=== PATIENT | female | born 1960 | race Caucasian/White ===

== ENCOUNTER 2017-10-19 10:26 | Emergency (ER) | payer OTHER ==
[2017-10-19 10:50] VITALS: BP 116/82
--- NOTE | 2017-10-19 12:43 | RAD ---
Indication: Left lower leg pain. 2 views of left lower leg demonstrates no fracture. No other bone or joint abnormality is identified. IMPRESSION: No definite fracture of the left lower leg is noted.
--- NOTE | 2017-10-19 13:16 | UC ---
Eric Avendano Jason, scribed for Angel Hills MD on 10/19/17 at 1226 . Lower Extremity/Ankle HPI - HPI Summary HPI Summary: This patient is a 57 year old F presenting to [facility] with a chief complaint of stabbing and throbbing lower left leg pain since 2.5 weeks ago. The patient states the leg pain got to the point where I cant run. It has interrupted my sleep for the last 3 days. Prior to the injury I was running 3 days a week because I got a hip injury in July. My hip got better, I received had a cortisone injection, and I began running 20 miles a week. Additionally, the patient states she couldnt even stand this morning and is taking ibuprofen for pain. The patient rates the pain 5/10 in severity. Symptoms aggravated by nothing. Symptoms alleviated by nothing. Patient reports having a foot drop. Patient denies weakness, numbness, and butt pain. Has hx of stress fracture. - History of Current Complaint Chief Complaint: UCLowerExtremity Stated Complaint: LEG PAIN Time Seen by Provider: 10/19/17 12:02 Hx Obtained From: Patient Onset/Duration: Lasting Weeks - Since 2.5 weeks ago, Still Present Pain Intensity: 5 Pain Scale Used: 0-10 Numeric Aggravating Factor(s): Nothing Alleviating Factor(s): Nothing - Allergies/Home Medications Allergies/Adverse Reactions: Allergies Allergy/AdvReac Type Severity Reaction Status Date / Time codeine Allergy Nausea Verified 10/19/17 10:50 Penicillins Allergy Hives Verified 10/19/17 10:50 Home Medications: Home Medications Ibuprofen 400 mg PO 10/19/17 [History] PMH/Surg Hx/FS Hx/Imm Hx - Surgical History Surgical History: None Surgery Procedure, Year, and Place: AGE 12 MOUTH SURGERY-NO METAL. AGE 38 BUNIONECTOMY. RIGHT BREAST BIOPSY - Family History Known Family History: Positive: Other - Breast CA - Social History Alcohol Use: Weekly Alcohol Amount: 2-3 beers 1-3x a week Substance Use Type: None Smoking Status (MU): Never Smoked Tobacco Review of Systems Constitutional: Other - negative fever Musculoskeletal: Other: - experienced a "foot drop" while running. Lower left leg pain. All Other Systems Reviewed And Are Negative: Yes Physical Exam - Summary Physical Exam Summary: General: well-appearing, no pain distress Skin: warm, color reflects adequate perfusion, dry Head: normal Eyes: EOMI, MELISSA ENT: normal Neck: supple, nontender Respiratory: CTA, breath sounds present Cardiovascular: RRR Abdomen: soft, nontender Bowel: present Musculoskeletal: No low back pain. No tenderness of sciatic nerve distribution. The knee is normal. Ankle is normal. Plantar flexion is normal. Left foot Dorsiflexion is mildly decreased when compared to the right foot. Neurological: normal, sensory/motor intact, A&O x3 Psychological: affect/mood appropriate Triage Information Reviewed: Yes Vital Signs: Initial Vital Signs Temp 98.4 F 10/19/17 10:42 Pulse 65 10/19/17 10:42 Resp 18 10/19/17 10:42 BP 116/82 10/19/17 10:42 Pulse Ox 100 10/19/17 10:42 Diagnostics - Radiology lower extremity xray Radiology Interpretation Completed By: Radiologist - Lower extremity x-ray reveals, per radiologist, no definite fracture of the left lower leg. physician has reviewed this radiology report. Lower Extremity Course/Dx - Course Course Of Treatment: Lower extremity x-ray reveals, per radiologist, No definite fracture of the left lower leg is noted. THERE IS MILD DECREASED STRENGTH OF LEFT FOOT DORSIFLEXION ON EXAM. PATIENT REPORTS IT WAS WORSE 2 WEEKS AGO WHERE SHE HAD DIFFICULTY WITH DORSIFLEXION. THERE IS NO LOW BACK OR HIP/SCIATIC PAIN/TENDERNESS. THE PAIN IN THE LOWER LEG MOST PROBABLY REPRESENT PERONEAL NERVE IMPINGEMENT FROM SOFT TISSUE INFLAMMATION. DISCUSSED X-RAY RESULTS AND FOOT DROP. TREAT WITH REST/ICE NSAIDS AND CLOSE F/U WITH SPORTS MEDICINE. - Differential Dx/Diagnosis Provider Diagnoses: LEFT LOWER LEG PAIN. LEFT FOOT DROP. Elevated blood pressure without a diagnosis of hypertension Discharge - Discharge Plan Condition: Stable Disposition: HOME Patient Education Materials: Foot Drop (ED) Referrals: Jalil Kaplan [Medical Doctor] - Joselyn Mtoa MD [Primary Care Provider] - Additional Instructions: FOLLOW UP WITH YOUR SPORTS MEDICINE DOCTOR. CALL TOMORROW TO ARRANGE FOLLOW UP. GET RECHECKED FOR ANY WORSENING OF YOUR CONDITION OR QUESTIONS OR CONCERNS. YOUR BLOOD PRESSURE WAS ELEVATED DURING TODAY'S VISIT; FOLLOW UP WITH YOUR PCP WITHIN ONE WEEK FOR FURTHER EVALUATION. The documentation as recorded by the Eric melchor Jason accurately reflects the service I personally performed and the decisions made by me, Angel Hills MD.
== END 2017-10-19 13:00 | disposition home or self-care (01) ==
LOC: UCEAST 10:26
DX: M79.662 Pain in left lower leg (principal); M21.372 Foot drop, left foot; R03.0 Elevated blood-pressure reading, without diagnosis of hypertension; Z88.5 Allergy status to narcotic agent; Z88.0 Allergy status to penicillin
CPT/HCPCS: 99211; G0463

== ENCOUNTER 2018-04-16 04:00 | Emergency (ER) | payer OTHER ==
[2018-04-16] MEDS ORDERED: Morphine VIAL* 10 MG/ML 1 ML VIAL ONE (05:06)
--- OUTSIDE RECORDS SUMMARY | 2018-04-16 05:47 | XMS REPORT ---
:1960 External Reference #:[id number] Author Organization [facility] Address [address] [place] [address] Phone [phone] Care Team Providers Name Role Phone Joselyn Pillai MD Care Team Information Advertising Sales Assistant Unavailable Payers Type Date Identification Numbers Payment Provider Subscriber Commercial Policy Number: [id number] Lifetime Benefit SLNS Mariah Queen Group Number: [id number] [address] [address] PayID: [facility] [place] [id number] Commercial Expires: 2014 Policy Number: [facility] [place] Not Use Mariah Queen [id number] PayID: [employer] [address] [place] [address] Problems Date Description Provider Status Onset: 11/08/2014 Environmental allergy Ermelinda Stern MD Active Family History Date Family Member(s) Problem(s) Comments Father due to Hodgkin () Lymphoma Father due to Congestive () Heart Failure Father due to CAD () - father [place] 64's, totally 3 LA's mat grandmoter Mi in 60's Mother due to Mesothelioma () Paternal Grandfather due to Heart Attack () Paternal Grandmother due to rheumatoid () arthritus Maternal Grandfather due to Heart Attack () Maternal Grandmother due to Old Age () Maternal Grandmother due to breast cancer () - Social History Type Date Description Comments 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 ETOH Use Occasionally consumes beer Smoking Patient has never smoked Recreational Drug Use Never Used Drugs Daily Caffeine occasional 1-2 month 1 q week Enjoy Exercising Enjoys Exercising Seat Belt/Car Seat always uses seat belt Sexual Hx text Female partner Allergies, Adverse Reactions, Alerts Date Description Reaction Status Severity Comments 11/07/2014 Penicillins active 11/07/2014 Pollen active 11/07/2014 Grass active Medications Medication Date Status Form Strength Qnty SIG Indications Ordering Provider Betamethasone 04/15/ Active Ointment 0.05% 45gm apply to L23.7 Freya, Dipropionate 2016 affected Joselyn skin in MD Radha morning and night Xyzal Allergy 00/ Active Tablets 5mg OTC Per V15.09 Unknown 24HR 0000 Turpentiner J30.9 Oxycodone-Acetaminophen Active Tablets 5-325mg 1 tabs at Unknown up to 2 times a day ( every 6 hours) as needed for severe pain Gabapentin 02/03/2018 - Hx Capsules 9 2 PO Q Am M [facility], 03/19/2018 0 And 3 PO AT 5 Joselyn c hs 4 MD Radha a . p 1 s 6 Clarithromycin 08/01/2016 - Hx Tablets 500mg 1 1 tablet J [facility], 02/04/2017 4 per oral 0 Joselyn t every 12 2 MD elizabeth Garcia hours x 7 . b days 0 s Benzonatate 08/01/2016 - Hx Capsules 100mg 3 1 capsule 3 J [facility], 03/19/2017 0 x time 0 Joselyn c daily as 2 MD elizabeth Garcia needed for . p cough. 0 s Fluticasone Propionate 08/01/2016 - Hx Suspension 50mcg/Act 1 spray one J [facility], 03/19/2017 6 spray in 0 Joselyn u each 2 MD loco Garcia nostril . i every day 0 t s Azithromycin 10/12/2015 - Hx Tablets 250mg 6 2 tabs on [facility], 06/06/2016 t day 1. one Joselyn a tab by MD yousuf Garcia mouth 2-5 s Nasonex 03/23/2015 - Hx Suspension 50mcg/Act 1 intranasal [facility], 06/06/2016 u 2 puffs b/l Ermelinda n nostrils MD Natasha i everyday t s Alavert Allergy/Sinus 11/07/2014 - Hx Tablets ER 5-120mg V [facility], 03/19/2017 12HR 1 Ermelinda 5 MD Natasha . 0 9 Montelukast Sodium 11/07/2014 - Hx Tablets 10mg 9 1 by mouth [facility], 10/12/2015 0 every day - Ermelinda t free MD Natasha a samples b s Triamcinolone Acetonide 11/07/2014 - Hx Aerosol 55mcg/Act 1 [address] [facility], 11/08/2014 u nostrils Ermelinda n everyday MD Natasha i prn - free t sample s Fluticasone Propionate 11/07/2014 - Hx Suspension 50mcg/Act 1 1 spray b/ l [facility], 03/23/2015 u nostrils Ermelinda n once to MD Natasha i twice a day t s Immunizations CPT Code Status Date Vaccine Lot # [id number] Given 06/29/2016 Influenza Vac, 3 Yrs & Older, Quadrivalent, Split, Im Use Vital Signs Date Vital Result Comment 03/19/2018 Weight 124.00 lb Heart Rate 72 /min BP Systolic Sitting 111 mmHg BP Diastolic Sitting 80 mmHg Height 62 inches 5'2" BMI (Body Mass Index) 22.7 kg/m2 Right Visual Acuity Distance 20/15 Left Visual Acuity Distance 20/13 02/03/2018 Weight 125.00 lb Heart Rate 61 /min BP Systolic 106 mmHg BP Diastolic 74 mmHg Height 62 inches 5'2" BMI (Body Mass Index) 22.9 kg/m2 Urine Dipstick - Blood NEGATIVE Urine Dipstick - Protein NEGATIVE Urine Dipstick - Glucose NEGATIVE Urine Dipstick - Leukocytes NEGATIVE 04/15/2017 Weight 126.00 lb Heart Rate 65 /min BP Systolic 105 mmHg BP Diastolic 73 mmHg Height 62 inches 5'2" BMI (Body Mass Index) 23.0 kg/m2 03/19/2017 Weight 124.12 lb Heart Rate 52 /min BP Systolic 102 mmHg BP Diastolic 72 mmHg Height 62 inches 5'2" BMI (Body Mass Index) 22.7 kg/m2 08/01/2016 Body Temperature 97.8 F Weight 125.38 lb Heart Rate 75 /min BP Systolic 101 mmHg BP Diastolic 74 mmHg Height 62.5 inches 5'2.50" BMI (Body Mass Index) 22.6 kg/m2 06/06/2016 Weight 129.25 lb Heart Rate 58 /min BP Systolic 117 mmHg BP Diastolic 83 mmHg Height 62.5 inches 5'2.50" BMI (Body Mass Index) 23.3 kg/m2 04/23/2016 Weight 125.00 lb Heart Rate 68 /min BP Systolic 102 mmHg BP Diastolic 70 mmHg Height 62.5 inches 5'2.50" BMI (Body Mass Index) 22.5 kg/m2 10/12/2015 Body Temperature 98.6 F Weight 127.50 lb Heart Rate 62 /min BP Systolic 109 mmHg BP Diastolic 69 mmHg Height 62.5 inches 5'2.50" BMI (Body Mass Index) 22.9 kg/m2 11/30/2014 Weight 128.00 lb Heart Rate 63 /min BP Systolic 102 mmHg BP Diastolic 67 mmHg Height 62.5 inches 5'2.50" BMI (Body Mass Index) 23.0 kg/m2 11/07/2014 Weight 126.12 lb Heart Rate 60 /min BP Systolic 115 mmHg BP Diastolic 76 mmHg Height 62.5 inches 5'2.50" BMI (Body Mass Index) 22.7 kg/m2 Results Test Date Test Result H/L Range Note Xray 03/19/2018 Mammogram, Screening, <pending> Bilateral CBC with Auto 02/03/2018 WBC 9.5 K/uL 4.1-11.0 Diff-fcmg RBC 4.30 M/uL 4.00-5.40 Hemoglobin 13.3 gm/dL 12.0-16.0 Hematocrit 39.3 % 36.0-47.0 MCV 91.2 fL 80.0-97.0 MCH 31.0 pg 27.0-32.0 MCHC 33.9 g/dL 32.0-36.0 RDW 13.2 % 11.5-14.5 PLT Count 250 K/ul 140-400 MPV 10.0 FL 7.1-10.7 Neutrophil 58.2 % 35.0-75.0 Lymphocyte 34.7 % 16.0-52.0 Monocyte 5.5 % 2.0-10.0 Eosinophil 0.7 % 0.0-5.0 Basophil 0.9 % 0.0-4.0 Abs Neutrophils 5.5 K/uL 2.1-8.0 Abs Lymphocytes 3.3 K/uL 0.8-5.5 Abs Monocytes 0.5 K/uL 0.1-1.0 Abs Eosinophils 0.1 K/uL 0.0-0.5 Abs Basophils 0.1 K/uL 0.0-0.3 Comprehensive Met Panel-FCMG 02/03/2018 Sodium 142 mmol/L 135-146 1 Potassium 4.8 mmol/L 3.5-5.2 Chloride# 104 mmol/L 97-110 2 Carbon Dioxide 28 mmol/L 24-34 Glucose 108 mg/dL High 70-105 BUN 20 mg/dL 6-26 Creatinine 0.9 mg/dL 0.5-1.4 Calcium 10.0 mg/dL 8.5-10.2 Total Protein 6.6 g/dL 6.0-8.0 Albumin 4.6 g/dL 3.6-4.9 Globulin 2.0 g/dL 2.0-3.5 A/G Ratio 2.3 Ratio High 1.0-2.2 Total Bilirubin 0.7 mg/dL 0.1-1.3 Alkaline Phosphatase 54 U/L 24-140 Alt 25 U/L 3-42 Ast 39 U/L 8-42 Joyce Egfr >60 >60 3 Non Joyce Egfr >60 >60 4 Anion Gap 10 mmol/L 5-15 5 CBC With Auto Diff 03/03/2017 WBC 9.3 K/uL 4.1-11.0 RBC 4.34 M/uL 4.00-5.40 Hemoglobin 12.7 gm/dL 12.0-16.0 Hematocrit 38.6 % 36.0-47.0 MCV 88.9 fL 80.0-97.0 MCH 29.3 pg 27.0-32.0 MCHC 33.0 g/dL 32.0-36.0 RDW 14.6 % High 11.5-14.5 PLT Count 212 K/ul 140-400 Neutrophil 64.1 % 35.0-75.0 Lymphocyte 30.6 % 16.0-52.0 Monocyte 3.7 % 2.0-10.0 Eosinophil 1.1 % 0.0-5.0 Basophil 0.5 % 0.0-4.0 Abs Neutrophils 6.0 K/uL 2.1-8.0 Abs Lymphocytes 2.8 K/uL 0.8-5.5 Abs Monocytes 0.3 K/uL 0.1-1.0 Abs Eosinophils 0.1 K/uL 0.0-0.5 Abs Basophils 0.0 K/uL 0.0-0.3 Lipid 03/03/2017 Cholesterol 224 mg/dL High 50-199 Triglycerides 99 mg/dL 30-200 HDL 79 mg/dL 35-85 6 Chol/ HDL Ratio 2.9 ratio Low 3.7-5.6 VLDL 20 mg/dL 2-29 LDL (Calc) 126 mg/dL High 20-99 7 Laboratory test finding 03/03/2017 TSH 0.67 uIU/mL 0.35-4.94 Vitamin B12 247 pg/mL 180-914 Vit D,25 Hydroxy 31 ng/mL 31-100 Hepatitis C Virus Antibody NONREACTIVE Nonreactive Comprehensive Met Panel-FCM 03/03/2017 Sodium 142 mmol/L 135-146 8 Potassium 5.8 No visible h <SEE NOTE> mmol/L High 3.5-5.2 9 Chloride# 107 mmol/L 97-110 10 Carbon Dioxide 28 mmol/L 24-34 Glucose 103 mg/dL 70-105 BUN 18 mg/dL 6-26 Creatinine 1.0 mg/dL 0.5-1.4 Calcium 9.7 mg/dL 8.5-10.2 Total Protein 6.5 g/dL 6.0-8.0 Albumin 4.2 g/dL 3.6-4.9 Globulin 2.3 g/dL 2.0-3.5 A/G Ratio 1.8 Ratio 1.0-2.2 Total Bilirubin 0.8 mg/dL 0.1-1.3 Alkaline Phosphatase 68 U/L 24-140 Alt 24 U/L 3-42 Ast 37 U/L 8-42 Joyce Egfr >60 >60 11 Non Joyce Egfr 60 Low >60 12 Anion Gap 13 mmol/L 7-16 13 1 Updated reference range on new analyzer 2 Updated reference range on new analyzer 3 Concerning GFR Guidelines for Americans: Normal function or mild renal disease, if clinically at risk: >/=60 mL/min Moderately decreased: 30-59 Severely decreased: 15-29 Renal failure: <15 4 Concerning GFR Guidelines: Normal function or mild renal disease, if clinically at risk: >/=60 mL/min Moderately decreased: 30-59 Severely decreased: 15-29 Renal failure: <15 Glomerular Filtration Rate (GFR) is estimated based on the MDRD equation, which assumes a steady state for creatinine as recommended by the National Kidney Disease Education Program in conjunction with the National Institutes of Health and the National Kidney Foundation. Clinical conditions in which it may be necessary to measure GFR by using clearance methods include extremes of age and body size, severe malnutrition or obesity, diseases of skeletal muscle, paraplegia or quadriplegia, vegetarian diet, rapidly changing kidney function, and calculation of the dose of potentially toxic drugs that are excreted by the kidneys. 5 Updated Reference Range 6 Per NCEP ATP III Guidelines: Results lower than 40 mg/dL are suggestive of increased risk for coronary artery disease. Results > or=to 60 mg/dL are considered a negative risk factor. 7 Per NCEP ATP III Guidelines: Normal Population <130 Patients with medical conditions: CHD/DM Optimal: <100 Borderline high: 130-159 High: 160-189 Very high: >189 8 Updated reference range on new analyzer 9 5.8 No visible hemolysis. 10 Updated reference range on new analyzer 11 Concerning GFR Guidelines for Americans: Normal function or mild renal disease, if clinically at risk: >/=60 mL/min Moderately decreased: 30-59 Severely decreased: 15-29 Renal failure: <15 12 Concerning GFR Guidelines: Normal function or mild renal disease, if clinically at risk: >/=60 mL/min Moderately decreased: 30-59 Severely decreased: 15-29 Renal failure: <15 Glomerular Filtration Rate (GFR) is estimated based on the MDRD equation, which assumes a steady state for creatinine as recommended by the National Kidney Disease Education Program in conjunction with the National Institutes of Health and the National Kidney Foundation. Clinical conditions in which it may be necessary to measure GFR by using clearance methods include extremes of age and body size, severe malnutrition or obesity, diseases of skeletal muscle, paraplegia or quadriplegia, vegetarian diet, rapidly changing kidney function, and calculation of the dose of potentially toxic drugs that are excreted by the kidneys. 13 Updated reference range on new analyzer Procedures Date CPT Code Description Status 02/03/2018 43257 Electrocardiogram Complete Completed 04/02/2017 Mammogram Completed 04/23/2016 81776 Electrocardiogram Complete Completed 12/01/2014 Mammogram Completed 11/30/2014 83770 Electrocardiogram Complete Completed 07/05/2013 Mammogram Completed 11/21/2011 Mammogram Completed Encounters Type Date Location Provider CPT E/M Dx Office Visit 02/03/2018 9:40[place] [address] Z01.818 M54.16 J30.9 Office Visit 04/15/2017 2:20p [place] [address] L23.7 Office Visit 03/19/2017 2:00p Vernell Melgoza RN [place] [employer] 19771 Z00.00 J30.9 Z12.31 Office Visit 08/01/2016 1:40[place] [address] J02.0 Office Visit 06/06/2016 11:20[place] [address] R55 Office Visit 10/12/2015 1:40p [place] [address] J02.9 R68.84 J01.90 Office Visit 11/30/2014 2:40[place] [address] 995.3 V81.0 V72.31 Office Visit 11/07/2014 2:40p [place] [address] V70.0 995.3 Plan of Care 03/19/2018 - Vernell Christy RN MS FNPZ00.00 Encntr for general adult medical exam w/o abnormal findingsMiscellaneous:DISCUSSED IMPORTANCE OF SUN SCREEN WHEN OUT DOORS.Z12.31 Encntr screen mammogram for malignant neoplasm of qscsxtL99.9 Vitamin D deficiency, unspecifiedMiscellaneous:Vitamin d: take 1000iu daily in summer and 2000iu daily in winter, this may help with depression andor mood.D51.9 Vitamin B12 deficiency anemia, unspecifiedMiscellaneous:MAY TAKE VIT B12 [id number] Disruption of external operation (surgical) wound, NEC, initComments:DR GRAHAM, PHONE PLEASE FAX THE CULTURE [id number] Body mass index (BMI) 25.0-25.9, adultAllMiscellaneous:CHECK WITH YOUR PCP, GET YOUR LAST TETNUS SHOT INFO AND YOUR LAST COLONOSCOPY. FAX TO OUR OFFICE
--- NOTE | 2018-04-16 06:11 | ED ---
Lower Extremity - HPI Summary HPI Summary: Pt is a 58 year old female presenting to the ED with a chief complaint of leg pain. About 6 weeks ago, she had a laminectomy on her lumbar spine at [facility], but had complications when the sutures opened and the wound became infected. She was on an Abx course which she finished, but started having pain in her R leg on 04/11. The next day, the spasms started, but she could still walk to the bathroom. Currently, she cannot bear weight or move her R leg without any pain. It feels ok when she is resting, but when she tries to move, she describes it as a 10/10 pain. Pt denies fevers. - History of Current Complaint Chief Complaint: EDAbdPain Stated Complaint: LEG PAIN Time Seen by Provider: 04/16/18 05:47 Hx Obtained From: Patient Mechanism Of Injury: Other - surgery 6 wks ago Onset of Pain: Days Onset/Duration: Days Severity Initially: Moderate Severity Currently: Moderate Pain Intensity: 10 Pain Scale Used: 0-10 Numeric - upon movement Timing: Constant Associated Signs And Symptoms: Negative: Fever Aggravating Factor(s): Standing, Ambulation, Movement, Weight Bearing Alleviating Factor(s): Rest - Allergies/Home Medications Allergies/Adverse Reactions: Allergies Allergy/AdvReac Type Severity Reaction Status Date / Time codeine Allergy Nausea Verified 12/26/17 10:05 Penicillins Allergy Hives Verified 12/26/17 10:05 PMH/Surg Hx/FS Hx/Imm Hx Previously Healthy: Yes Endocrine/Hematology History: Denies: Hx Diabetes Cardiovascular History: Denies: Hx Hypertension, Hx Pacemaker/ICD History: Denies: Hx Renal Disease Musculoskeletal History: Denies: Hx Rheumatoid Arthritis, Hx Osteoporosis Sensory History: Denies: Hx Hearing Aid Neurological History: Denies: Other Neuro Impairments/Disorders - PAIN CLINIC PT Psychiatric History: Denies: Hx Panic Disorder - Cancer History Hx Chemotherapy: No Hx Radiation Therapy: No - Surgical History Surgery Procedure, Year, and Place: AGE 12 MOUTH SURGERY-NO METAL. AGE 38 BUNIONECTOMY. RIGHT BREAST BIOPSY Infectious Disease History: Denies: Traveled Outside the [place] in Last 30 Days - Family History Known Family History: Positive: Other - Breast CA - Social History Alcohol Use: Weekly Alcohol Amount: 3-5 DRINKS Substance Use Type: Reports: None Hx Tobacco Use: No Smoking Status (MU): Never Smoked Tobacco Review of Systems - ROS Summary Review of Systems Summary: Appearance: Well-appearing, Well-nourished, lying in bed comfortable Skin: Warm, dry, no obvious rash Eyes: sclera anicteric, no conjunctival pallor ENT: mucous membranes moist Neck: deferred Respiratory: No signs of respiratory distress Cardiovascular: Appears well perfused, pulses are nml Abdomen: deferred Musculoskeletal: Good strength and ROM in both legs, reflexes are fine in L leg , no reflexes on R leg. Wound on back from laminectomy has mild purulent drainage. The area has no swelling, tenderness, or erythema around the area. Neurological: Awake and alert, mentation is normal, speech is fluent and appropriate Psychiatric: affect is normal, does not appear anxious or depressed Negative: Fever Musculoskeletal: Other - spasms in R leg Positive: Myalgia, Other - reflexes are fine in L leg, no reflexes on R leg. Wound on back from laminectomy has mild purulent drainage. The area has no swelling, tenderness, or erythema around the area. All Other Systems Reviewed And Are Negative: Yes Physical Exam - Summary Physical Exam Summary: Appearance: Well-appearing, Well-nourished, lying in bed comfortable Skin: Warm, dry, no obvious rash Eyes: sclera anicteric, no conjunctival pallor ENT: mucous membranes moist Neck: deferred Respiratory: No signs of respiratory distress Cardiovascular: Appears well perfused, pulses are nml Abdomen: deferred Musculoskeletal: Good strength and ROM in both legs, reflexes are fine in L leg , no reflexes on R leg. Wound on back from laminectomy has mild purulent drainage. The area has no swelling, tenderness, or erythema around the area. Neurological: Awake and alert, mentation is normal, speech is fluent and appropriate Psychiatric: affect is normal, does not appear anxious or depressed Triage Information Reviewed: Yes Vital Signs Reviewed: Yes Lower Extremity Course/Dx - Diagnoses Provider Diagnoses: Back pain Discharge - Sign-Out/Discharge Documenting (check all that apply): Sign-Out Patient Signing out patient TO: Angel Hills Receiving patient FROM: Sergio Cheng - Discharge Plan Referrals: Joselyn Mota MD [Primary Care Provider] - - Attestation Statements Document Initiated by Scribe: Yes Documenting Scribe: Crissy Lamar Provider For Whom Scribe is Documenting (Include Credential): Sergio Cheng MD. Scribe Attestation: Crissy Avendano, scribed for Sergio Cheng MD. on 04/16/18 at 0641.
--- NOTE | 2018-04-16 07:08 | ED ---
Progress - Progress Note Progress Note: This patient is a 58 year old F presenting to [facility] with a chief complaint of cramping right leg pain since 04/09/18, with sx at their worst since 04/12/18. She endorses lumbar spine laminectomy on 03/06/[address] Graham in [place]. She states that 10 days s/p surgery the incision site opened and became infected ; she finished her abx 04/09/18. Pt endorses that sx were nearly gone last week, but then returned and steadily worsened starting on 04/09/18. By 04/12/18 pt denies being able to ambulate, even with a crutch. Sx worsen with turning funny ; goes to 10/10 pain. Rx oxycodone and flexural, which stop alleviating sx after less than 1 hour. She endorses that the pain started out in her buttock, but is now located lower in the leg now. She denies current pain as long as she s not moving. She endorses decreased ROM secondary to pain, right sided leg weakness, and partial numbness in her foot. Pt notes sleeping in a recliner chair, and endorses possibly laying on symptomatic side more frequently. Dr. Early planning on MRI Friday in [place]. Physical Exam: General: well-appearing, no pain distress Skin: warm, color reflects adequate perfusion, dry. 4 cm incision over lower lumbar spine with dressing in it, with a small amount of yellow discharge on the dressing itself. No erythema, no swelling Head: normal Eyes: EOMI, MELISSA ENT: normal Neck: supple, nontender Respiratory: CTA, breath sounds present Cardiovascular: RRR Abdomen: soft, nontender Bowel: present Musculoskeletal: Any right leg movement causes lower back pain. Patellar reflexes intact, normal pulses, plantar and dorsal flexion 5/5 bilaterally, though pt reports right dorsal flexion is weaker than the left. Lowered sensation of medial aspect of right foot, normal on lateral aspect. Neurological: sensory/motor intact, A&O x3 Psychological: affect/mood appropriate - Results/Orders Results/Orders: MRI Lumbar Spine: 1. TRANSITIONAL ANATOMY, USING THE COUNTING SCHEME DESCRIBED ABOVE. 2. STATUS POST LEFT HEMILAMINECTOMY AT L3-L4. 3. THERE HAS BEEN INTERVAL DEVELOPMENT OF BONE EDEMA AND ENHANCEMENT OF L4-L5 WITH IRREGULAR ENDPLATES AND FLUID WITHIN THE INTERVERTEBRAL DISC SPACE OF L4-L5 CONSISTENT WITH OSTEOMYELITIS DISCITIS. THERE IS ASSOCIATED PARAVERTEBRAL INFLAMMATORY CHANGE 4. THERE IS A PERIPHERALLY ENHANCING EPIDURAL FLUID COLLECTION AT L4 EXTENDING TO THE RIGHT LATERAL RECESS OF L4-L5 MOST CONSISTENT WITH EPIDURAL ABSCESS GIVEN THE IMAGING FINDINGS. 5. THERE IS SEVERE NARROWING OF THE CENTRAL CANAL AT L4-L5. THERE IS NEUROFORAMINAL NARROWING DESCRIBED ABOVE. Dr. Hills has reviewed this report. Re-Evaluation - Re-Evaluation First Eval Re-Evaluation Time: 14:14 Change: Unchanged Comment: Informed of transfer Course/Dx - Course Course Of Treatment: DISCUSSED WITH THE PATIENT'S NEUROSURGEON, DR GRAHAM . HE RECOMMENDED TRANSFER TO [facility] WHERE HE HAS ADMITTING PRIVLEDGES. STABLE AT TRANSFER. - Diagnoses Provider Diagnoses: Back pain, Abscess in epidural space of lumbar spine, Lumbar discitis - Provider Notifications Discussed Care Of Patient With: Adebayo Graham MD Time Discussed With Above Provider: 08:35 Instructed by Provider To: Other - Phone number [phone]. Recommends MRI of L-S spine. Discharge - Sign-Out/Discharge Documenting (check all that apply): Patient Departure - transfer, Receiving Sign -Out Receiving patient FROM: [facility] - Discharge Plan Condition: Stable Disposition: TRANS HIGHER LVL OF CARE FAC Referrals: Joselyn Mota MD [Primary Care Provider] - - Billing Disposition and Condition Condition: STABLE Disposition: Trans Higher Lvl of Care Fac - Attestation Statements Document Initiated by Kenyaibe: Yes Documenting Scribe: Peter Beltran Provider For Whom Scribe is Documenting (Include Credential): Dr. Angel Hills MD Scribe Attestation: Peter Avendano scribed for Dr. Angel Hills MD on 04/16/18 at 1523. Scribe Documentation Reviewed: Yes Provider Attestation: The documentation as recorded by the Peter melchor accurately reflects the service I personally performed and the decisions made by me, Dr. Angel Hills MD
[2018-04-16 07:59] LABS: ABS Basophils 0.1 10^3/ul (0-0.2); ABS Eosinophils 0 10^3/ul (0-0.6); ABS Lymphocytes 3.2 10^3/ul (1.0-4.8); ABS Monocytes 0.5 10^3/ul (0-0.8); ABS Nucleated RBC 0 10^3/ul; Eosinophil % 0.2 % (0-6); Hematocrit 32 % (35-47); Hemoglobin 11.2 g/dl (12.0-16.0); Lymphocyte % 17.2 % (25-47); Mean Corpuscular HGB Conc 35 g/dl (31-36); Mean Corpuscular Hemoglobin 30 pg (27-31); Mean Corpuscular Volume 86 fL (80-97); Mean Platelet Volume 8.4 um3 (7.4-10.4); Nucleated Red Blood Cells % 0.1; Platelet Count 490 10^3/ul (150-450); Red Blood Count 3.78 10^6/ul (4.00-5.40); Red Cell Distribution Width 13 % (10.5-15); White Blood Count 18.9 10^3/ul (3.5-10.8)
[2018-04-16 08:08] LABS: INR 1.48 (0.77-1.02)
[2018-04-16] MEDS ORDERED: Morphine VIAL* 4 MG/ML VIAL (1 ml vial) IV ONE ×2 (08:47→12:34)
[2018-04-16] MEDS ORDERED: Ondansetron INJ* 2 MG/ML VIAL IV ONE (08:47)
[2018-04-16] MEDS ORDERED: Morphine INJ* 2 MG/ML 1 ML SYRINGE (TWO MG - NEW SYRINGE VERSION) ONE (08:51)
[2018-04-16] MEDS ORDERED: Gadoteridol* (CONTRAST) 279.3 MG/ML 10 ML IV ONE (11:40)
--- NOTE | 2018-04-16 12:27 | RAD ---
HISTORY: low back/rt leg pain,lumbar laminectomy 6 wk ago COMPARISONS: October 21, 2017 TECHNIQUE: The following sequences were obtained of the lumbar spine: Sagittal and axial T1- and T2-weighted images, coronal T2-weighted images, and sagittal STIR images. Additionally, axial and sagittal T1 weighted images were obtained after contrast enhancement with a gadolinium-based intravenous contrast agent.. FINDINGS: There is transitional anatomy with a last lumbar type vertebral body which will be labeled L5 for the purposes of counting. SPINAL CORD, CONUS, AND CAUDA EQUINA: The visualized spinal cord, conus, and cauda equina are normal in caliber, position, and signal intensity. There is a peripherally enhancing epidural fluid collection measuring 0.8 cm in depth centered at L4 extending to the right lateral recess of L4-L5. ALIGNMENT: There is grade 1 anterolisthesis of L4-L5. VERTEBRAL BODIES: There is edema and the patient is status post laminectomy. Enhancement of the vertebral bodies of L4 and L5 with irregularity along the endplates. There is transitional anatomy with partial sacralization of the L5 vertebral body. JOINTS: There is facet osteoarthritis along the lower lumbar spine. MUSCULATURE: There is edema and enhancement of the left multifidus muscle. INTERVERTEBRAL DISCS: There is intravertebral fluid at L4-L5. AXIAL IMAGES: L2-L3: There is no disc herniation, spinal stenosis, or neuroforaminal narrowing. L3-L4: A left-sided laminectomy defect is noted. There is moderate bilateral neuroforaminal narrowing. L4-L5: There is a broad-based disc bulge/rolled disc. There is post surgical change to left facet joint. There is ligamentous hypertrophy. There is moderate bilateral neuroforaminal narrowing. There is severe narrowing of the central canal. L5-S1: There is bilateral facet hypertrophy. There is no significant neural foraminal narrowing of central canal stenosis. SOFT TISSUES: There is post surgical change posterior to L4-L5 with fluid tracking to the skin surface. There is perivertebral edema and enhancement centered at L4-L5. OTHER: None. IMPRESSION: 1. TRANSITIONAL ANATOMY, USING THE COUNTING SCHEME DESCRIBED ABOVE. 2. STATUS POST LEFT HEMILAMINECTOMY AT L3-L4. 3. THERE HAS BEEN INTERVAL DEVELOPMENT OF BONE EDEMA AND ENHANCEMENT OF L4-L5 WITH IRREGULAR ENDPLATES AND FLUID WITHIN THE INTERVERTEBRAL DISC SPACE OF L4-L5 CONSISTENT WITH OSTEOMYELITIS DISCITIS. THERE IS ASSOCIATED PARAVERTEBRAL INFLAMMATORY CHANGE 4. THERE IS A PERIPHERALLY ENHANCING EPIDURAL FLUID COLLECTION AT L4 EXTENDING TO THE RIGHT LATERAL RECESS OF L4-L5 MOST CONSISTENT WITH EPIDURAL ABSCESS GIVEN THE IMAGING FINDINGS. 5. THERE IS SEVERE NARROWING OF THE CENTRAL CANAL AT L4-L5. THERE IS NEUROFORAMINAL NARROWING DESCRIBED ABOVE. PRELIMINARY FINDINGS WERE DISCUSSED WITH DR. PORRAS AT APPROXIMATELY 12:23 PM ON APRIL 16, 2018 .
[2018-04-16] MEDS ORDERED: cefTRIAXone(*) 2 GM in NS 0.9% 100 ML* 100 ML IVPB ONE (12:46)
[2018-04-16] MEDS ORDERED: Vancomycin(*) 1,000 MG in NS 0.9% 250 ML* 250 ML IVPB ONE (12:46)
[2018-04-16] MEDS ORDERED: HYDROmorphone INJ* 1 MG/ML CARPUJECT SYRINGE IV ONE ×2 (13:44→17:06)
[2018-04-16] MEDS ORDERED: HYDROmorphone INJ* 1 MG/ML CARPUJECT SYRINGE ONE ×2 (13:47→17:07)
[2018-04-16] MEDS ORDERED: LORazepam INJ* 2 MG/ML 1 ML VIAL IV ONE (14:06)
[2018-04-16] MEDS ORDERED: NS 0.9% 1000 ML* 1,000 ML IV ONE ×2 (14:06→17:06)
[2018-04-16 17:12] VITALS: BP 98/65
--- NOTE | 2018-04-18 07:10 | PN ---
Progress Note - Progress Note Date of Service: 04/16/18 Note: Pt. seen in ER 04/16 for post op wound infection. Pt. was transferred at [facility] where is surgeon is. BC today growing serratia marcescens. Will fax susceptibility when available.
--- NOTE | 2018-04-21 09:42 | ED ---
Progress - Progress Note Progress Note: This patient is a 58 year old F presenting to [facility] with a chief complaint of cramping right leg pain since 04/09/18, with sx at their worst since 04/12/18. She endorses lumbar spine laminectomy on 03/06/[address] Graham in [place]. She states that 10 days s/p surgery the incision site opened and became infected ; she finished her abx 04/09/18. Pt endorses that sx were nearly gone last week, but then returned and steadily worsened starting on 04/09/18. By 04/12/18 pt denies being able to ambulate, even with a crutch. Sx worsen with turning funny ; goes to 10/10 pain. Rx oxycodone and flexural, which stop alleviating sx after less than 1 hour. She endorses that the pain started out in her buttock, but is now located lower in the leg now. She denies current pain as long as she s not moving. She endorses decreased ROM secondary to pain, right sided leg weakness, and partial numbness in her foot. Pt notes sleeping in a recliner chair, and endorses possibly laying on symptomatic side more frequently. Dr. Early planning on MRI Friday in [place]. Physical Exam: General: well-appearing, no pain distress Skin: warm, color reflects adequate perfusion, dry. 4 cm incision over lower lumbar spine with dressing in it, with a small amount of yellow discharge on the dressing itself. No erythema, no swelling Head: normal Eyes: EOMI, MELISSA ENT: normal Neck: supple, nontender Respiratory: CTA, breath sounds present Cardiovascular: RRR Abdomen: soft, nontender Bowel: present Musculoskeletal: Any right leg movement causes lower back pain. Patellar reflexes intact, normal pulses, plantar and dorsal flexion 5/5 bilaterally, though pt reports right dorsal flexion is weaker than the left. Lowered sensation of medial aspect of right foot, normal on lateral aspect. Neurological: sensory/motor intact, A&O x3 Psychological: affect/mood appropriate - Results/Orders Results/Orders: MRI Lumbar Spine: 1. TRANSITIONAL ANATOMY, USING THE COUNTING SCHEME DESCRIBED ABOVE. 2. STATUS POST LEFT HEMILAMINECTOMY AT L3-L4. 3. THERE HAS BEEN INTERVAL DEVELOPMENT OF BONE EDEMA AND ENHANCEMENT OF L4-L5 WITH IRREGULAR ENDPLATES AND FLUID WITHIN THE INTERVERTEBRAL DISC SPACE OF L4-L5 CONSISTENT WITH OSTEOMYELITIS DISCITIS. THERE IS ASSOCIATED PARAVERTEBRAL INFLAMMATORY CHANGE 4. THERE IS A PERIPHERALLY ENHANCING EPIDURAL FLUID COLLECTION AT L4 EXTENDING TO THE RIGHT LATERAL RECESS OF L4-L5 MOST CONSISTENT WITH EPIDURAL ABSCESS GIVEN THE IMAGING FINDINGS. 5. THERE IS SEVERE NARROWING OF THE CENTRAL CANAL AT L4-L5. THERE IS NEUROFORAMINAL NARROWING DESCRIBED ABOVE. Dr. Hills has reviewed this report. UPDATE: spoke w/ Dr. Graham re: pt's cx findings. He reports he was already of the serratia marscens - he performed surgical repair of herniation s/p initial surgery and reports pt's pain resolved after. He cx'd her disc space and found trace amounts of the same bacteria - based on his other findings, he does not believe this was a true infection but pt was started on anbx to cover organism. He is appreciative for f/u but does not feel faxed results are necessary as they will not change in tx plan. Discussed results on 04/21/2018 at 18:30. Re-Evaluation - Re-Evaluation First Eval Re-Evaluation Time: 14:14 Change: Unchanged Comment: Informed of transfer Course/Dx - Course Course Of Treatment: DISCUSSED WITH THE PATIENT'S NEUROSURGEON, DR GRAHAM [phone]. HE RECOMMENDED TRANSFER TO [facility] WHERE HE HAS ADMITTING PRIVLEDGES. STABLE AT TRANSFER. - Diagnoses Provider Diagnoses: Back pain, Abscess in epidural space of lumbar spine, Lumbar discitis - Provider Notifications Time Discussed With Above Provider: 08:35 Instructed by Provider To: Other - Phone number [phone]. Recommends MRI of L-S spine. Discharge - Sign-Out/Discharge Documenting (check all that apply): Post-Discharge Follow Up - Discharge Plan Condition: Stable Disposition: TRANS HIGHER LVL OF CARE FAC Referrals: Joselyn Mota MD [Primary Care Provider] - - Billing Disposition and Condition Condition: STABLE Disposition: Trans Higher Lvl of Care Fac
== END 2018-04-16 17:33 | disposition short-term general hospital (02) ==
LOC: ED 04:00
DX: L02.212 Cutaneous abscess of back [any part, except buttock and flank] (principal); B96.89 Other specified bacterial agents as the cause of diseases classified elsewhere; M46.46 Discitis, unspecified, lumbar region; Z98.890 Other specified postprocedural states; Z88.5 Allergy status to narcotic agent; Z88.0 Allergy status to penicillin
CPT/HCPCS: 36415; 72158; 80053; 85025; 85610; 85730; 86140; 87040; 87077; 87186; 87205; 96365; 96366; 96375; 96376; 99284; A9579; J0696; J1170; J2060; J2270; J2405; J3370